=== PATIENT | male | born 1945 | race Caucasian/White ===

== ENCOUNTER 2016-12-21 07:20 | Day surgery (SDC) | payer OTHER ==
--- NOTE | ~2016-12-21 | OP ---
Record Of Operation [facility] [address] [place]. [address] NAME: FRANKO PLUMMER : 49 STATUS : [facility]#: [id number] AGE: 71 ADM/REG DATE : 12/21/16 MR#: [id number] REPORT SERV DATE: 12/22/16 DICTATED BY: NORA BARNHART DATE: 12/22/16 REPORT STATUS : Draft TRANSCRIBED BY: MODL DATE: 12/22/16 DATE OF PROCEDURE: 12/21/2016 SURGEON: Nora Barnhart MD TITLE OF OPERATION: Insertion of three-piece inflatable penile prosthesis. PREOPERATIVE DIAGNOSIS: Erectile dysfunction. POSTOPERATIVE DIAGNOSIS: Erectile dysfunction. INDICATIONS: Mr. Plummer is a 71-year-old male with erectile dysfunction. He has failed oral medications and penile injection therapy. He is here for penile prosthesis. Risks, benefits, and expected outcomes were explained in detail. ANESTHESIA: General. COMPLICATIONS: None. IMPLANTS: #10 LC drain. SPECIMENS: None. NARRATIVE: The patient was brought to the operating room, identified by his wristband. General anesthesia was induced, and vancomycin and gentamicin were given for preoperative antibiotics. The patient then underwent a 10-minute scrub. He was then prepped with chlorhexidine. He was then draped in a sterile fashion. A time-out was performed. A butterfly needle was placed into his lateral corporal body. Hydrodissection was performed with injectable saline. A 3 cm incision was made one fingerbreadth above the base of the penis. This incision was carried down through Nito's fascia and then bluntly dissected to expose bilateral corporal bodies. Two 2-0 Vicryl sutures were placed in each corporal body laterally as stay sutures. Corporotomies were made bilaterally between the two sutures. The corporal bodies were dilated and measured proximally and distally bilaterally. The length of the corporal bodies was 10 cm proximally and 10 cm distally for a total length of 20 cm. 18 cm cylinders with 2 cm rear tip extenders was chosen. After it being prepared on the back table, I prepared the space for the reservoir. I identified the external inguinal ring on the patient's right side and popped through the inguinal ring into the space of Retzius. A 100 mL reservoir Conceal balloon was placed into the space of Retzius. The reservoir was inflated with 90 mL of sterile water. Next, once the cylinders were prepared, using a Ever needle and a Annamarie device, the cylinders were placed distally through the corporal bodies. The cylinders were then seated proximally in the corporal bodies as well. The preplaced sutures were then tied to conceal the cylinders. Interrupted 2-0 Vicryl sutures were used to close any additional corporal space. At the end of this step of the operation, the cylinders were completely concealed. At this time, a test erection was performed using the device. The penis was straight. There were no other abnormalities. The cylinders were well seated distally in the penis. The cylinders were then deflated. A Record Of Operation [facility] [id number] [facility] [place]. [address] NAME: FRANKO PLUMMER : 49 STATUS : [facility] PAT#: [id number] AGE: 71 ADM/REG DATE : 12/21/16 MR#: [id number] REPORT SERV DATE: 12/22/16 DICTATED BY: NORA BARNHART DATE: 12/22/16 REPORT STATUS : Draft TRANSCRIBED BY: JAY DATE: 12/22/16 little bit of fluid was placed back into the cylinders to preserve the dilated space in the corporal bodies. Next, a pump was placed in a subdartos position in the right hemiscrotum. The pump and cylinders were then connected to the reservoir using a straight connector and the pre-provided wrench. The tubing was then buried in the surgical field. The wound was irrigated with antibiotic-infused saline. The Nito's fascia was reapproximated using interrupted 3-0 Vicryl suture. A #10 LC drain was placed through a separate stab incision and sutured in place with a 2-0 silk suture. The skin was closed with 4-0 Monocryl in a subcuticular fashion, and Dermabond dressing was placed. A 3 L saline bag was placed on the incision. The patient was awoken from anesthesia and transferred to the recovery room in stable condition. He will be discharged home with his drain in place with followup tomorrow for drain removal. LEONIE/JAY Nora Barnhart MD / [id number] CC: MD Yifan Olson Jr., M.D.
[~2016-12-21 07:20] MED LIST: ASAB PO; NORV10 PO; PRILO PO; SEVERAL VITS; TRAZ100 PO; ZBETA10 PO
== END 2016-12-21 19:59 | disposition home or self-care (01) ==
LOC: SDC 07:20
PROVIDERS: Urology
PROC: 0VUS0JZ Supplement Penis with Synthetic Substitute, Open Approach (ICD-10-PCS; principal; 2016-12-21 09:00)
DX: N52.9 Male erectile dysfunction, unspecified (principal); I10 Essential (primary) hypertension; J43.9 Emphysema, unspecified; J45.909 Unspecified asthma, uncomplicated; G47.33 Obstructive sleep apnea (adult) (pediatric); M19.90 Unspecified osteoarthritis, unspecified site; K21.9 Gastro-esophageal reflux disease without esophagitis; H26.9 Unspecified cataract; L40.9 Psoriasis, unspecified; Z99.89 Dependence on other enabling machines and devices; Z88.8 Allergy status to other drugs, medicaments and biological substances; Z79.82 Long term (current) use of aspirin; Z79.899 Other long term (current) drug therapy; Z87.891 Personal history of nicotine dependence; Z90.49 Acquired absence of other specified parts of digestive tract; Z98.890 Other specified postprocedural states
CPT/HCPCS: 80048; 81001; 85014; 85018; 93005; A9270-GY; C1813; J1580; J2250; J2270; J2405; J3010; J3370